=== PATIENT | female | born 2000 | race Two or more races ===

== ENCOUNTER → 2022-12-27 | Outpatient (CLI) | payer OTHER | LOC: M WUC 14:24 | PROVIDERS: ATTEND Physician Assistant | DX: S60.012A Contusion of left thumb without damage to nail, initial encounter (principal) ==

== ENCOUNTER 2024-07-08 21:01 | Emergency (ER) | payer OTHER ==
[~2024-07-08] VITALS: Ht 157.5 cm; Wt 85.0 kg
[2024-07-08] MEDS ORDERED: METF-838 PO (21:18)
[2024-07-08] MEDS ORDERED: SUMA50TA2 PO (21:18)
[2024-07-08] MEDS ORDERED: CETI-24 PO (21:18)
[2024-07-08] MEDS ORDERED: MONT10TA97 PO (21:18)
[2024-07-08] MEDS ORDERED: BUTA-198 PO (21:18)
[2024-07-08] MEDS ORDERED: FLUO-290 PO (21:18)
[2024-07-09] MEDS ORDERED: RABIES IMMUNE GLOBULIN 1500 INTERNATIONAL UNIT/5ML VIAL IM.IMMUN ONE (00:55)
[2024-07-09] MEDS ORDERED: TETANUS IMMUNE GLOBULIN (HUMAN) 250 UNITS/ML SYRINGE IM.IMMUN ONE (00:55)
[2024-07-09] MEDS: AUGMENTIN 875 MG TAB PO ONE (02:04)
[2024-07-09] MEDS: RABIES IMMUNE GLOBULIN 1500 INTERNATIONAL UNIT/5ML VIAL IM.IMMUN ONE (03:01)
[2024-07-09] MEDS: RABIES VACCINE 2.5 INTERNATIONAL UNITS/ML VIAL (RABAVERT) IM ONE (03:03)
[2024-07-09] MEDS: RABIES IMMUNE GLOBULIN 300 INTERNATIONAL UNITS/1ML VIAL IM.IMMUN ONE (03:29)
[2024-07-09 03:42] VITALS: BP 131/72; TEMP 98.1; O2SAT 98
== END 2024-07-09 03:40 | disposition home or self-care (01) ==
LOC: M ED 21:01
DX: Z29.14 Encounter for prophylactic rabies immune globulin (principal); Z20.3 Contact with and (suspected) exposure to rabies; W55.01XA Bitten by cat, initial encounter; Z79.4 Long term (current) use of insulin; Z79.2 Long term (current) use of antibiotics; Z79.899 Other long term (current) drug therapy; Y99.9 Unspecified external cause status

== ENCOUNTER 2024-07-12 15:26 | Emergency (ER) | payer OTHER ==
[~2024-07-12] VITALS: Ht 157.5 cm; Wt 85.9 kg
[~2024-07-12 15:26] MED LIST: BUTA-198 PO; CETI-24 PO; FLUO-290 PO; METF-838 PO; MONT10TA97 PO; SUMA50TA2 PO
[2024-07-12 15:28] VITALS: BP 137/86; TEMP 97; O2SAT 99
[2024-07-12] MEDS ORDERED: ABSO30CA PO (15:39)
[2024-07-12] MEDS ORDERED: ROSU40TA81 PO (15:39)
[2024-07-12] MEDS ORDERED: AMOX875T2 PO (15:39)
[2024-07-12] MEDS: RABIES VACCINE 2.5 INTERNATIONAL UNITS/ML VIAL (RABAVERT) IM ONE (16:14)
== END 2024-07-12 16:31 | disposition home or self-care (01) ==
LOC: M ED 15:26
DX: Z29.14 Encounter for prophylactic rabies immune globulin (principal); Z20.3 Contact with and (suspected) exposure to rabies; W55.01XA Bitten by cat, initial encounter; F32.A Depression, unspecified; F41.9 Anxiety disorder, unspecified; E28.2 Polycystic ovarian syndrome; Z79.2 Long term (current) use of antibiotics; Z79.899 Other long term (current) drug therapy

== ENCOUNTER 2024-07-16 17:45 | Emergency (ER) | payer OTHER ==
[~2024-07-16] VITALS: Ht 157.5 cm; Wt 85.9 kg
[~2024-07-16 17:45] MED LIST changes: +ABSO30CA PO; +AMOX875T2 PO; +ROSU40TA81 PO
[2024-07-16 20:05] VITALS: BP 138/81; TEMP 97.4; O2SAT 98
[2024-07-16] MEDS: RABIES VACCINE HUMAN 2.5 INTERNATIONAL UNITS/ML VIAL (IMOVAX) IM ONE (20:05)
== END 2024-07-16 20:10 | disposition home or self-care (01) ==
LOC: M ED 17:45
DX: Z29.14 Encounter for prophylactic rabies immune globulin (principal); Z20.3 Contact with and (suspected) exposure to rabies; Z79.2 Long term (current) use of antibiotics; Z79.4 Long term (current) use of insulin; Z79.899 Other long term (current) drug therapy; Z23 Encounter for immunization